=== PATIENT | female | born 1955 ===

== ENCOUNTER 2023-06-13 10:20 | Outpatient (CLI) | payer OTHER | END 2023-06-13 10:26 | disposition home or self-care (01) | LOC: EKG 10:20 | PROVIDERS: ATTEND Obstetrics & Gynecology Gynecology | DX: I10 Essential (primary) hypertension (principal) ==

== ENCOUNTER 2023-06-19 06:05 | Day surgery (SDC) | payer OTHER ==
[~2023-06-19 06:05] MED LIST: CALTRATE 600 +1 EAC1 PO; MULTIVIT PO; OMEGA 3 1,0001 EACH PO
[2023-06-19] MEDS ORDERED: MACROBID 100 M100 MG PO (11:30)
[2023-06-19] MEDS ORDERED: TRAM1TAB98 PO (11:30)
== END 2023-06-19 14:30 | disposition home or self-care (01) ==
LOC: CIR.AMB 06:05
PROVIDERS: ATTEND Obstetrics & Gynecology Gynecology
DX: N39.3 Stress incontinence (female) (male) (principal); N36.41 Hypermobility of urethra; Z20.822 Contact with and (suspected) exposure to COVID-19; Z88.8 Allergy status to other drugs, medicaments and biological substances
CPT/HCPCS: 57288; C1771